=== PATIENT | female | born 2000 | race Caucasian/White ===

== ENCOUNTER 2019-01-29 16:03 | Emergency (ER) | payer BC ==
[~2019-01-29] VITALS: Ht 157.5 cm; Wt 117.3 kg
[~2019-01-29 16:03] MED LIST: FAMO-96 PO; IBUP-1561 PO; ONDA4TAB14 PO
[2019-01-29 16:11] VITALS: BP 146/95; PULSE 86; RESP 14; Ht 157.5 cm; Wt 117.3 kg
== END 2019-01-30 01:19 | disposition home or self-care (01) ==
LOC: E/R 16:03
DX: K21.9 Gastro-esophageal reflux disease without esophagitis (principal)
CPT/HCPCS: 76705; 80053; 81001; 81025; 83690; 85025